=== PATIENT | male | born 1965 | race Caucasian/White ===

== ENCOUNTER 2019-03-12 10:58 | Inpatient (IN) | payer BC, OTHER ==
[2019-03-12] MEDS ORDERED: FAMOTIDINE 20 MG/50 ML IVPB 20 MG/50 ML MG IVPB ONE ×2 (11:33→13:14)
[2019-03-12] MEDS ORDERED: SODIUM CHLORIDE 1,000 ML IV STA (11:33)
[2019-03-12] MEDS ORDERED: ONDANSETRON 4 MG/2 ML VIAL IVPUSH ONE ×2 (11:34→18:15)
--- NOTE | 2019-03-12 11:42 | PDOC ---
History of Present Illness - General History Source: Patient, Spouse - History of Present Illness Initial Comments: 03/12/19 11:40 Patient is a 53-year-old male who presents to the ED with his for nausea and vomiting that has been ongoing for the last 1 week. Patient states that he is unable to eat any food and has only been able to drink Ensure or fluids. 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 He had an endoscopy this past week by his GI doctor, Dr. Mann who is in [facility]. The patient's spouse's [id number] advised him to come to [facility] for further evaluation and treatment. The patient also had a CT scan this past week. The patient quit smoking about 8 years ago and states he drinks little and only drinks about 5-6 beers every Tuesday night. The patient also admits to having chest pain rating down his left arm for the last 2 days.The pain does not radiate to his back. He denies any jaw or neck pain. <Rahel Quesada - Last Filed: 03/12/19 19:08> <Ray Castro - Last Filed: 03/13/19 09:34> - General Chief Complaint: Nausea/Vomiting Stated Complaint: COLD SYMPTOMS Time Seen by Provider: 03/12/19 11:25 Past History - Past Medical History COPD: No Other medical history: oesophageal canccer - Surgical History Cholecystectomy: No Lung Surgery: No - Immunization History Immunization Up to Date: No - Psycho Social/Smoking Cessation Hx Smoking History: Former smoker Have you smoked in the past 12 months: No Information on smoking cessation initiated: No Hx Alcohol Use: No Drug/Substance Use Hx: No <Rahel Quesada - Last Filed: 03/12/19 19:08> <Ray Castro - Last Filed: 03/13/19 09:34> - Past Medical History Allergies/Adverse Reactions: Allergies Allergy/AdvReac Type Severity Reaction Status Date / Time No Known Allergies Allergy Verified 03/12/19 11:15 Review of Systems - Review of Systems Comments:: 03/12/19 11:40 - Review of Systems Able to Perform ROS?: Yes Constitutional: No: Fever, Chills, Night Sweats; + malaise + Weakness, +Loss of Appetite HEENTM: No: Eye Pain, Vision changes, Ear Pain, Throat Pain, Throat Swelling, Mouth Pain, Difficulty Swallowing Respiratory: No: Cough, Shortness of Breath, Wheezing, Sputum Production Cardiac (ROS): No: Chest Pain, Chest Tightness, Palpitations, Irregular Heart Beat, Edema ABD/GI: No: Diarrhea; + Nausea, Vomiting, Abdominal Pain : No Dysuria, No Hematuria, No Frequency, No Urgency Musculoskeletal: No: Muscle Pain, Back Pain, Joint Pain, Muscle Weakness, Neck Pain Integumentary: No: Lesions, Rash Neurological: No: Headache, Numbness, Tingling, Weakness, Speech Difficulties 03/12/19 11:46 <Rahel Quesada D - Last Filed: 03/12/19 19:08> *Physical Exam - Vital Signs Last Vital Signs Temp Pulse Resp BP Pulse Ox 97.9 F 104 H 16 133/85 93 L 03/12/19 11:15 03/12/19 11:15 03/12/19 11:15 03/12/19 11:15 03/12/19 11:15 - Physical Exam 03/12/19 11:41 - Physical Exam General Appearance: Nourished, Appropriately Dressed, No Distress: + moderate distress secondary to general unwell feeling HEENT: EOMI, Normal Voice, No Pharyngeal Erythema, No Muffled/Hoarse voice, No Tonsillar Exudate, No Tonsillar Erythema, No Nasal Congestion, No Rhinorrhea, Hearing Grossly Normal, TMs Normal, No TM Bulging, No TM Dullness, No TM Erythema Neck: Supple, No Lymphadenopathy (R), No Lymphadenopathy (L), No Rigidity, No Decreased range of motion Respiratory/Chest: Lungs Clear, Normal Breath Sounds. No Respiratory Distress, No Accessory Muscle Use Cardiovascular: Regular Rhythm, Regular Rate, S1, S2 Gastrointestinal/Abdominal: Normal Bowel Sounds, Soft. + diffuse upper abdominal tenderness to palpation, + voluntary guarding appreciated Musculoskeletal: Normal Inspection. No Decreased Range of Motion Extremity: Normal Capillary Refill, Normal Inspection Integumentary: Normal Color, Dry. No Rash Neurologic: supervisor edging II-XII NML intact, Fully Oriented, Alert, Normal Mood/Affect, Normal Response <Rahel Quesada D - Last Filed: 03/12/19 19:08> - Vital Signs Last Vital Signs Temp Pulse Resp BP Pulse Ox 98.6 F 100 H 18 138/83 87 L 03/13/19 05:58 03/13/19 05:58 03/13/19 05:58 03/13/19 05:58 03/13/19 03:51 <Ray Castro - Last Filed: 03/13/19 09:34> ED Treatment Course - LABORATORY CBC & Chemistry Diagram: 03/12/19 13:30 03/12/19 13:30 - ADDITIONAL ORDERS Additional order review: 03/12/19 14:50 Laboratory Tests 03/12/19 03/12/19 03/12/19 13:30 13:30 13:30 WBC 9.2 RBC 5.67 H Hgb 17.6 H Hct 50.9 H MCV 89.8 MCH 31.0 MCHC 34.5 RDW 13.1 Plt Count 256 MPV 9.9 Absolute Neuts (auto) 8.0 Neutrophils % 86.3 H Lymphocytes % 6.5 L Monocytes % 6.4 Eosinophils % 0.5 Basophils % 0.3 Nucleated RBC % 0 PT with INR INR PTT (Actin FS) Sodium 133 L Potassium 5.3 H Chloride 99 Carbon Dioxide 26 Anion Gap 8 BUN 18.2 H Creatinine 1.2 Est GFR (CKD-EPI)AfAm 78.98 Est GFR (CKD-EPI)NonAf 68.14 Random Glucose 81 Calcium 9.0 Total Bilirubin 1.8 H AST 473 H ALT 374 H Alkaline Phosphatase 446 H Creatine Kinase 282 Creatine Kinase Index Pending CK-MB (CK-2) Pending Troponin I < 0.02 Total Protein 6.9 Albumin 3.0 L Lipase 152 03/12/19 13:30 WBC RBC Hgb Hct MCV MCH MCHC RDW Plt Count MPV Absolute Neuts (auto) Neutrophils % Lymphocytes % Monocytes % Eosinophils % Basophils % Nucleated RBC % PT with INR 15.10 H INR 1.28 H PTT (Actin FS) 31.4 Sodium Potassium Chloride Carbon Dioxide Anion Gap BUN Creatinine Est GFR (CKD-EPI)AfAm Est GFR (CKD-EPI)NonAf Random Glucose Calcium Total Bilirubin AST ALT Alkaline Phosphatase Creatine Kinase Creatine Kinase Index CK-MB (CK-2) Troponin I Total Protein Albumin Lipase <Rahel Quesada - Last Filed: 03/12/19 19:08> - LABORATORY CBC & Chemistry Diagram: 03/13/19 07:25 03/13/19 07:25 - ADDITIONAL ORDERS Additional order review: 03/12/19 13:30 RBC 5.67 H MCV 89.8 MCHC 34.5 RDW 13.1 MPV 9.9 Neutrophils % 86.3 H Lymphocytes % 6.5 L Monocytes % 6.4 Eosinophils % 0.5 Basophils % 0.3 - Medications Given in the ED: ED Medications Discontinued Medications Generic Name Dose Route Start Last Admin Trade Name Sundarq PRN Reason Stop Dose Admin Famotidine/Sodium Chloride 20 mg in 50 mls @ 100 mls/hr 03/12/19 11:33 13:37 Pepcid 20 Mg Premixed Ivpb - IVPB 03/12/19 12:02 100 mls/hr ONCE ONE Administration Sodium Chloride 1,000 mls @ 1,000 mls/hr 03/12/19 11:33 03/12/19 13:36 Normal Saline - IV 03/12/19 12:32 1,000 mls/hr ASDIR STA Administration Morphine Sulfate 4 mg 03/12/19 11:51 03/12/19 13:37 Morphine Injection - IVPUSH 03/12/19 11:52 4 mg ONCE ONE Administration Morphine Sulfate 4 mg 03/12/19 18:15 03/12/19 18:28 Morphine Injection - IVPUSH 03/12/19 18:16 4 mg ONCE ONE Administration Ondansetron HCl 4 mg 03/12/19 11:34 03/12/19 13:37 Zofran Injection IVPUSH 03/12/19 11:35 4 mg ONCE ONE Administration Ondansetron HCl 4 mg 03/12/19 18:15 03/12/19 18:28 Zofran Injection IVPUSH 03/12/19 18:16 4 mg ONCE ONE Administration Sodium Chloride 1,000 ml 03/12/19 14:53 03/12/19 15:31 Normal Saline - IV 03/12/19 14:54 1,000 ml ONCE ONE Administration Sodium Chloride 1,000 ml 03/12/19 18:15 03/12/19 18:28 Normal Saline - IV 03/12/19 18:16 1,000 ml ONCE ONE Administration <Ray Castro - Last Filed: 03/13/19 09:34> Medical Decision Making - Medical Decision Making 03/12/19 11:47 Pt is a 53 y/o male with a recent diagnosis of esophageal cancer with metastasis to his liver who presents to the ED with vomiting, abdominal pain and chest pain. The abdominal pain and vomiting has been ongoing for 1 week. The chest pain started 2 days ago. -We will send labs for further evaluation -EKG ordered -Zofran, pepcid and fluids. -Morphine -Will reassess 03/12/19 18:55 I have had multiple discussions with the patient and his . The patient just came back from CT scan. A repeat dose of Zofran and morphine have been given to the patient. The patient will require admission but he is pending his CT scan read. The patient has been endorsed to [facility] for further evaluation and treatment. <Rahel Quesada - Last Filed: 03/12/19 19:08> - Medical Decision Making 03/13/19 09:34 I reviewed the case of the mid-level practitioner and was available for consultation while in the emergency department <Ray Castro - Last Filed: 03/13/19 09:34> Discharge - Discharge Information Problems reviewed: Yes <Rahel Quesada - Last Filed: 03/12/19 19:08> <Ray Castro - Last Filed: 03/13/19 09:34> - Discharge Information Clinical Impression/Diagnosis: Transaminitis, Abdominal pain Vomiting Qualifiers: Vomiting type: unspecified Vomiting Intractability: non-intractable Nausea presence: with nausea Qualified Code(s): R11.2 - Nausea with vomiting, unspecified Condition: Stable
[2019-03-12] MEDS ORDERED: morphine CARPU-JECT 4 MG/1 ML DISP.SYRIN IVPUSH ONE ×2 (11:51→18:15)
[2019-03-12] MEDS ORDERED: ONDANSETRON 4 MG/2 ML VIAL ONE ×2 (13:13→18:20)
[2019-03-12] MEDS ORDERED: morphine SULFATE 4 MG/ML VIAL ONE ×2 (13:13→18:19)
[2019-03-12] MEDS ORDERED: MORPHINE SULFATE 2 MG/ML VIAL ONE (13:23)
[2019-03-12 14:07] LABS: BASO % 0.3 % (0-2.0); EOS % 0.5 % (0-4.5); HEMATOCRIT 50.9 % (35.4-49); HEMOGLOBIN 17.6 GM/dL (11.7-16.9); LYMPH % 6.5 % (8-40); MCHC 34.5 g/dl (32.0-35.9); MEAN CELL VOLUME 89.8 fl (80-96); MEAN PLT VOLUME 9.9 fl (7.5-11.1); MONO % 6.4 % (3.8-10.2); NEUT % 86.3 % (42.8-82.8); PLATELET COUNT 256 K/MM3 (134-434); RBC 5.67 M/mm3 (4.00-5.60); RDW 13.1 % (11.9-15.9); WHITE BLOOD COUNT 9.2 K/mm3 (4.0-10.0)
[2019-03-12 14:26] LABS: INR 1.28 (0.83-1.09); PROTHROMBIN TIME (PATIENT) 15.1 SEC (9.7-13.0)
[2019-03-12 14:29] LABS: ACTIVATED PTT 31.4 SECONDS (25.2-36.5)
[2019-03-12 14:45] LABS: BILIRUBIN,TOTAL 1.8 mg/dL (0.2-1); BLOOD UREA NITROGEN 18.2 mg/dL (7-18); CREATININE 1.2 mg/dL (0.55-1.3); POTASSIUM 5.3 mmol/L (3.5-5.1); TOT PROT 6.9 g/dl (6.4-8.2)
[2019-03-12] MEDS ORDERED: SODIUM CHLORIDE 0.9% 500 ML INFUS.BAG IV ONE ×2 (14:53→18:15)
--- NOTE | 2019-03-12 15:49 | EKG ---
Test Reason : Blood Pressure : / mmHG Vent. Rate : 093 BPM Atrial Rate : 093 BPM P-R Int : 142 ms QRS Dur : 106 ms QT Int : 370 ms P-R-T Axes : 000 014 020 degrees QTc Int : 460 ms NORMAL SINUS RHYTHM NORMAL ECG NO PREVIOUS ECGS AVAILABLE Confirmed by Iwona Sandoval ([id number]) on 03/12/2019 3:49:26 PM Referred By: Confirmed By:Iwona Sandoval
--- NOTE | 2019-03-12 20:18 | PDOC ---
*Physical Exam - Vital Signs Last Vital Signs Temp Pulse Resp BP Pulse Ox 98.0 F 80 16 140/84 98 03/12/19 15:33 03/12/19 15:33 03/12/19 15:33 03/12/19 15:33 03/12/19 15:33 ED Treatment Course - LABORATORY CBC & Chemistry Diagram: 03/12/19 13:30 03/12/19 13:30 - ADDITIONAL ORDERS Additional order review: Laboratory Results 03/12/19 03/12/19 03/12/19 13:30 13:30 13:30 PT with INR 15.10 H INR 1.28 H PTT (Actin FS) 31.4 Sodium 133 L Potassium 5.3 H Chloride 99 Carbon Dioxide 26 Anion Gap 8 BUN 18.2 H Creatinine 1.2 Est GFR (CKD-EPI)AfAm 78.98 Est GFR (CKD-EPI)NonAf 68.14 Random Glucose 81 Calcium 9.0 Total Bilirubin 1.8 H AST 473 H ALT 374 H Alkaline Phosphatase 446 H Creatine Kinase 282 Creatine Kinase Index No Result Required. CK-MB (CK-2) < 1.0 Troponin I < 0.02 Total Protein 6.9 Albumin 3.0 L Lipase 152 03/12/19 13:30 RBC 5.67 H MCV 89.8 MCHC 34.5 RDW 13.1 MPV 9.9 Neutrophils % 86.3 H Lymphocytes % 6.5 L Monocytes % 6.4 Eosinophils % 0.5 Basophils % 0.3 - RADIOLOGY Radiology Studies Ordered: Category Date Time Status ABDOMEN US [US] Stat Ultrasound 03/12/19 19:59 Ordered - Medications Given in the ED: ED Medications Discontinued Medications Generic Name Dose Route Start Last Admin Trade Name Freq PRN Reason Stop Dose Admin Famotidine/Sodium Chloride 20 mg in 50 mls @ 100 mls/hr 03/12/19 11:33 13:37 Pepcid 20 Mg Premixed Ivpb - IVPB 03/12/19 12:02 100 mls/hr ONCE ONE Administration Sodium Chloride 1,000 mls @ 1,000 mls/hr 03/12/19 11:33 03/12/19 13:36 Normal Saline - IV 03/12/19 12:32 1,000 mls/hr ASDIR STA Administration Morphine Sulfate 4 mg 03/12/19 11:51 03/12/19 13:37 Morphine Injection - IVPUSH 03/12/19 11:52 4 mg ONCE ONE Administration Morphine Sulfate 4 mg 03/12/19 18:15 03/12/19 18:28 Morphine Injection - IVPUSH 03/12/19 18:16 4 mg ONCE ONE Administration Ondansetron HCl 4 mg 03/12/19 11:34 03/12/19 13:37 Zofran Injection IVPUSH 03/12/19 11:35 4 mg ONCE ONE Administration Ondansetron HCl 4 mg 03/12/19 18:15 03/12/19 18:28 Zofran Injection IVPUSH 03/12/19 18:16 4 mg ONCE ONE Administration Sodium Chloride 1,000 ml 03/12/19 14:53 03/12/19 15:31 Normal Saline - IV 03/12/19 14:54 1,000 ml ONCE ONE Administration Sodium Chloride 1,000 ml 03/12/19 18:15 03/12/19 18:28 Normal Saline - IV 03/12/19 18:16 1,000 ml ONCE ONE Administration Medical Decision Making - Medical Decision Making 03/12/19 20:22 Patient CTAP shows gall bladder wall thickening. US pending patient to be admitted patient signed out to Dr. Hanna Discharge - Discharge Information Problems reviewed: Yes Clinical Impression/Diagnosis: Transaminitis Vomiting Qualifiers: Vomiting type: unspecified Vomiting Intractability: non-intractable Nausea presence: with nausea Qualified Code(s): R11.2 - Nausea with vomiting, unspecified Abdominal pain Qualifiers: Abdominal location: upper abdomen, unspecified Qualified Code(s): R10.10 - Upper abdominal pain, unspecified Condition: Stable - Admission Yes - Follow up/Referral - Patient Discharge Instructions - Post Discharge Activity
--- NOTE | 2019-03-12 20:46 | HP ---
Admitting History and Physical - Primary Care Physician PCP: Karl Hanna - Admission History of Present Illness: Patient is a 53-year-old male who presents to the ED with his for nausea and vomiting that has been ongoing for the last 1 week. Patient states that he is unable to eat any food and has only been able to drink Ensure or fluids. 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 He had an endoscopy this past week by his GI doctor, Dr. Mann who is in [facility]. The patient's spouse's [id number] advised him to come to [facility] for further evaluation and treatment. The patient also had a CT scan this past week. The patient quit smoking about 8 years ago and states he drinks little and only drinks about 5-6 beers every Tuesday night. The patient also admits to having chest pain rating down his left arm for the last 2 days.The pain does not radiate to his back. He denies any jaw or neck pain. - Smoking History Smoking history: Former smoker Have you smoked in the past 12 months: No - Alcohol/Substance Use Hx Alcohol Use: No Home Medications - Allergies Allergies/Adverse Reactions: Allergies Allergy/AdvReac Type Severity Reaction Status Date / Time No Known Allergies Allergy Verified 03/12/19 11:15 Review of Systems - Review of Systems Gastrointestinal: reports: Dysphagia Physical Examination Vital Signs: Vital Signs Temperature 98.0 F 03/12/19 15:33 Pulse Rate 80 03/12/19 15:33 Respiratory Rate 16 03/12/19 15:33 Blood Pressure 140/84 03/12/19 15:33 O2 Sat by Pulse Oximetry (%) 98 03/12/19 15:33 Constitutional: Yes: No Distress HENT: Yes: Atraumatic Neck: Yes: Supple Cardiovascular: Yes: Regular Rate and Rhythm Respiratory: Yes: CTA Bilaterally Gastrointestinal: Yes: Normal Bowel Sounds Extremities: Yes: WNL Edema: No Neurological: Yes: Alert, Oriented Labs: CBC, BMP 03/12/19 13:30 03/12/19 13:30 Problem List - Problems (1) Abdominal pain Assessment/Plan: prn pain meds Code(s): R10.9 - UNSPECIFIED ABDOMINAL PAIN Qualifiers: Abdominal location: upper abdomen, unspecified Qualified Code(s): R10.10 - Upper abdominal pain, unspecified (2) Transaminitis Assessment/Plan: follow up labs Code(s): R74.0 - NONSPEC ELEV OF LEVELS OF TRANSAMNS & LACTIC ACID DEHYDRGNSE (3) Vomiting Assessment/Plan: prn zofran Code(s): R11.10 - VOMITING, UNSPECIFIED Qualifiers: Vomiting type: unspecified Vomiting Intractability: non-intractable Nausea presence: with nausea Qualified Code(s): R11.2 - Nausea with vomiting, unspecified (4) Esophageal cancer Assessment/Plan: oncology consult to evaluate Code(s): C15.9 - MALIGNANT NEOPLASM OF ESOPHAGUS, UNSPECIFIED Assessment/Plan Laboratory Tests 03/12/19 03/12/19 03/12/19 13:30 13:30 13:30 WBC 9.2 RBC 5.67 H Hgb 17.6 H Hct 50.9 H MCV 89.8 MCH 31.0 MCHC 34.5 RDW 13.1 Plt Count 256 MPV 9.9 Absolute Neuts (auto) 8.0 Neutrophils % 86.3 H Lymphocytes % 6.5 L Monocytes % 6.4 Eosinophils % 0.5 Basophils % 0.3 Nucleated RBC % 0 PT with INR INR PTT (Actin FS) Sodium 133 L Potassium 5.3 H Chloride 99 Carbon Dioxide 26 Anion Gap 8 BUN 18.2 H Creatinine 1.2 Est GFR (CKD-EPI)AfAm 78.98 Est GFR (CKD-EPI)NonAf 68.14 Random Glucose 81 Calcium 9.0 Total Bilirubin 1.8 H AST 473 H ALT 374 H Alkaline Phosphatase 446 H Creatine Kinase 282 Creatine Kinase Index No Result Required. CK-MB (CK-2) < 1.0 Troponin I < 0.02 Total Protein 6.9 Albumin 3.0 L Lipase 152 03/12/19 13:30 WBC RBC Hgb Hct MCV MCH MCHC RDW Plt Count MPV Absolute Neuts (auto) Neutrophils % Lymphocytes % Monocytes % Eosinophils % Basophils % Nucleated RBC % PT with INR 15.10 H INR 1.28 H PTT (Actin FS) 31.4 Sodium Potassium Chloride Carbon Dioxide Anion Gap BUN Creatinine Est GFR (CKD-EPI)AfAm Est GFR (CKD-EPI)NonAf Random Glucose Calcium Total Bilirubin AST ALT Alkaline Phosphatase Creatine Kinase Creatine Kinase Index CK-MB (CK-2) Troponin I Total Protein Albumin Lipase Active Medications Generic Name Dose Route Start Last Admin Trade Name Freq PRN Reason Stop Dose Admin Heparin Sodium (Porcine) 5,000 unit 03/12/19 22:00 Heparin - SQ BID [facility] Sodium Chloride 1,000 mls @ 75 mls/hr 03/12/19 21:00 Normal Saline - IV ASDIR NATHALY Morphine Sulfate 2 mg 03/12/19 20:50 Morphine Sulfate IVPUSH Q4H PRN PAIN LEVEL 4 - 6 Ondansetron HCl 4 mg 03/12/19 20:50 Zofran Injection IVPB Q4H PRN NAUSEA AND/OR VOMITING Pantoprazole Sodium 40 mg 03/12/19 21:00 Protonix Iv IVPUSH DAILY NATHALY
[2019-03-12] MEDS: SODIUM CHLORIDE 1,000 ML IV SCH (22:14)
[2019-03-12] MEDS ORDERED: PANTOPRAZOLE SODIUM 40 MG VIAL ONE (22:15)
[2019-03-12] MEDS ORDERED: HEPARIN NA (PORCINE) 5,000 UNITS/ML 1ML VIAL ONE (22:15)
[2019-03-12] MEDS: PANTOPRAZOLE SODIUM 40 MG VIAL IVPUSH SCH (22:38)
[2019-03-12] MEDS: HEPARIN NA (PORCINE) 5,000 UNITS/ML 1ML VIAL SQ SCH (22:38)
[2019-03-13] MEDS ORDERED: ONDANSETRON 4 MG/2 ML VIAL ONE (01:30)
[2019-03-13] MEDS: ONDANSETRON 4 MG/2 ML VIAL IVPB PRN ×5 (02:34→21:43)
[2019-03-13 03:32] LABS: URINE APPEARANCE CLEAR; URINE BILIRUBIN NEGATIVE (NEGATIVE); URINE COLOR DK YELLOW; URINE GLUCOSE (UA) NEGATIVE (NEGATIVE); URINE KETONE NEGATIVE (NEGATIVE); URINE LEUK ESTERASE NEGATIVE (NEGATIVE); URINE NITRITE NEGATIVE (NEGATIVE); URINE PROTEIN NEGATIVE (NEGATIVE)
[2019-03-13 04:20] VITALS: BMI 32.1
[2019-03-13] MEDS: MORPHINE SULFATE 2 MG/ML VIAL IVPUSH PRN ×4 (07:06→21:42)
[2019-03-13] MEDS ORDERED: PNEUMOC 13-VAL CONJ-DIP CRM/PF 0.5 ML DISP.SYRIN IM ONE (08:00)
[2019-03-13 08:05] LABS: BASO % 0.6 % (0-2.0); EOS % 0.9 % (0-4.5); HEMATOCRIT 39.8 % (35.4-49); HEMOGLOBIN 13.6 GM/dL (11.7-16.9); LYMPH % 6.4 % (8-40); MCH 30.9 pg (25.7-33.7); MCHC 34.2 g/dl (32.0-35.9); MEAN CELL VOLUME 90.4 fl (80-96); MEAN PLT VOLUME 9.6 fl (7.5-11.1); MONO % 7.2 % (3.8-10.2); NEUT % 84.9 % (42.8-82.8); PLATELET COUNT 211 K/MM3 (134-434); RDW 13.1 % (11.9-15.9); WHITE BLOOD COUNT 8.5 K/mm3 (4.0-10.0)
[2019-03-13 08:28] LABS: ALBUMIN 2.5 g/dl (3.4-5.0); BILIRUBIN,TOTAL 1.3 mg/dL (0.2-1); BLOOD UREA NITROGEN 20.2 mg/dL (7-18); CREATININE 1.1 mg/dL (0.55-1.3); POTASSIUM 4.4 mmol/L (3.5-5.1); TOT PROT 5.3 g/dl (6.4-8.2)
[2019-03-13] MEDS ORDERED: FLU VACCINE QUAD 60 MCG/0.5 ML (MDV 19-20) IM ONE (10:00)
[2019-03-13] MEDS ORDERED: PNEUMOCOCCAL 23 VACCINE 0.5 ML VIAL IM ONE (10:00)
[2019-03-13] MEDS: PANTOPRAZOLE SODIUM 40 MG VIAL IVPUSH SCH (10:59)
[2019-03-13] MEDS: HEPARIN NA (PORCINE) 5,000 UNITS/ML 1ML VIAL SQ SCH ×2 (10:59→21:42)
--- NOTE | 2019-03-13 13:36 | PN ---
Progress Note (short form) - Note Progress Note: GI CONSULT DICTATED
--- NOTE | 2019-03-13 14:02 | CONS ---
GASTROINTESTINAL CONSULTATION DATE OF CONSULTATION: DATE OF DICTATION: 03/13/2019 HISTORY: Patient is a 53-year-old man with no significant past medical history except for a recent diagnosis of esophageal cancer. As per the patient's history, since , he has been experiencing dysphagia, difficulty swallowing solids and liquids, the sensation of food getting stuck in his chest. He was seen by his PMD who referred him to see a GI doctor, , in [facility] for an endoscopy. At that time, he was found to have esophageal cancer with metastasis to the liver. He presents to the emergency room with worsening symptoms of nausea, vomiting, and dysphagia. He apparently quit smoking 8 years ago and currently still drinks 5-6 beers on Fridays. He denies any melena, hematochezia. He does admit to some upper abdominal pain. He had a colonoscopy about 7 years ago and, again, his last endoscopy was a couple of weeks ago at which time he was diagnosed with new esophageal cancer. PAST MEDICAL HISTORY: As listed in the HPI. PAST SURGICAL HISTORY: As listed in the HPI. ALLERGIES: No known drug allergies. HOME MEDICATIONS: None. SOCIAL HISTORY: As per the HPI. No drug abuse. FAMILY HISTORY: No history of GI or gynecological malignancy. PHYSICAL EXAMINATION: Vital Signs: Temperature 98, pulse 100, blood pressure 138/83, respiratory rate 18, oxygen saturation 87% on room air. General: In no acute distress. HEENT: Anicteric sclerae. Cardiovascular: S1, S2. Regular rate and rhythm. Lungs: Bilaterally clear to auscultation. Abdomen: Soft, nontender. Extremities: No edema. LABORATORIES: White blood cell count 8.5, hemoglobin 13, hematocrit 39, MCV 90, platelet count 211, INR 1.2. Sodium 139, potassium 4.4, BUN 20, creatinine 1.1, total bilirubin 1.3, AST 366, ALT 260, alkaline phosphatase 309. Troponin is negative. Lipase 152. Urine within normal limits. No cultures were done. He did have a CT scan of the abdomen and pelvis, which revealed nonspecific, concentric wall thickening along the partially imaged lower 1/3 of the thoracic esophagus. Multiple hepatic masses. Upper abdominal and retroperitoneal lymphadenopathy is seen. A small amount of ascites is also seen. Also with [id number]-cile diffuse gallbladder wall thickening and elpxhtl-mi-fhis pericholecystic soft tissue stranding secondary to hepatic neoplastic disease versus possible acute cholecystitis. HIDA scan if indicated. No biliary calculi were visualized. Pancreas within normal limits. IMPRESSION: Stage 4 esophageal cancer with metastasis to the liver. Also with some gallbladder wall thickening and stranding, which may be secondary to his metastatic process in the liver. RECOMMENDATION: Liquid diet as tolerated. Would continue him on antiemetic therapy and PPI therapy for symptom control. Oncology evaluation for further management of a stage 4 esophageal cancer. Would also obtain surgery evaluation. Abdominal ultrasound will be ordered by me. I doubt he has acute cholecystitis, and these findings on imaging are most likely secondary to the underlying malignant process. We will follow. DO STAN CAMPA/[id number]
[2019-03-13] MEDS: SODIUM CHLORIDE 1,000 ML IV SCH (15:00)
--- NOTE | 2019-03-13 17:56 | PN ---
Progress Note, Physician - Current Medication List Current Medications: Active Medications Heparin Sodium (Porcine) (Heparin -) 5,000 unit SQ BID [facility] Last Admin: 03/13/19 10:59 Dose: 5,000 unit Sodium Chloride (Normal Saline -) 1,000 mls @ 75 mls/hr IV ASDIR [facility] Last Admin: 03/12/19 22:14 Dose: 75 mls/hr Morphine Sulfate (Morphine Sulfate) 2 mg IVPUSH Q4H PRN PRN Reason: PAIN LEVEL 4 - 6 Last Admin: 03/13/19 16:43 Dose: 2 mg Ondansetron HCl (Zofran Injection) 4 mg IVPB Q4H PRN PRN Reason: NAUSEA AND/OR VOMITING Last Admin: 03/13/19 16:43 Dose: 4 mg Pantoprazole Sodium (Protonix Iv) 40 mg IVPUSH DAILY [facility] Last Admin: 03/13/19 10:59 Dose: 40 mg - Objective Vital Signs: Vital Signs Temperature 98.6 F 03/13/19 15:00 Pulse Rate 91 H 03/13/19 15:00 Respiratory Rate 18 03/13/19 15:00 Blood Pressure 126/64 03/13/19 15:00 O2 Sat by Pulse Oximetry (%) 87 L 03/13/19 03:51 Constitutional: Yes: No Distress HENT: Yes: Atraumatic Neck: Yes: Supple Cardiovascular: Yes: Regular Rate and Rhythm Respiratory: Yes: CTA Bilaterally Gastrointestinal: Yes: Normal Bowel Sounds Extremities: Yes: WNL Edema: No Neurological: Yes: Alert, Oriented Labs: CBC, BMP 03/13/19 07:25 03/13/19 07:25 INR, PTT INR 1.28 (0.83-1.09) H 03/12/19 13:30 Problem List - Problems (1) Abdominal pain Assessment/Plan: prn pain meds resolving Code(s): R10.9 - UNSPECIFIED ABDOMINAL PAIN Qualifiers: Abdominal location: upper abdomen, unspecified Qualified Code(s): R10.10 - Upper abdominal pain, unspecified (2) Transaminitis Assessment/Plan: follow up labs Code(s): R74.0 - NONSPEC ELEV OF LEVELS OF TRANSAMNS & LACTIC ACID DEHYDRGNSE (3) Vomiting Assessment/Plan: prn zofran resolved Code(s): R11.10 - VOMITING, UNSPECIFIED Qualifiers: Vomiting type: unspecified Vomiting Intractability: non-intractable Nausea presence: with nausea Qualified Code(s): R11.2 - Nausea with vomiting, unspecified (4) Esophageal cancer Assessment/Plan: oncology consult to evaluate clear liquid diet Code(s): C15.9 - MALIGNANT NEOPLASM OF ESOPHAGUS, UNSPECIFIED
[2019-03-14] MEDS: SODIUM CHLORIDE 1,000 ML IV SCH (02:54)
[2019-03-14] MEDS: MORPHINE SULFATE 2 MG/ML VIAL IVPUSH PRN ×4 (02:55→19:56)
[2019-03-14] MEDS: ONDANSETRON 4 MG/2 ML VIAL IVPB PRN ×3 (02:55→19:52)
[2019-03-14] MEDS: PANTOPRAZOLE SODIUM 40 MG VIAL IVPUSH SCH (09:11)
[2019-03-14] MEDS: HEPARIN NA (PORCINE) 5,000 UNITS/ML 1ML VIAL SQ SCH ×2 (09:11→21:40)
--- NOTE | 2019-03-14 11:22 | CONSULT ---
Consultation: CONSULT SERVICE: Hematology/Oncology Resident HISTORY OF PRESENT ILLNESS: 53yo M with no significant history who presented originally to this facility with progressive dysphagia and intolerance to solid foods. Pt received endoscopy about 2-[address] Mann ([facility]) who diagnosed patient with esophageal cancer. At that time he received CT Chest, Abdomen, Pelvis for staging and was noted to have a liver lesion. Since then pt has had progressive generalized weakness and fatigue with ongoing dysphagia and inability to swallow solid food. Pt is able to swallow liquids at this point and also endorses some mild abdominal cramping. Spoke with patient with at bedside who informed me about connection with [facility] and hope of possibility of transfer to this facility. Currently pt is comfortable at time of exam and he denies any fever/chills, weight loss, SOB, cough, CP/discomfort, palpitations, abdominal bloating, numbness/tingling, focal weakness, hematemesis, hemoptysis. PMHx: Stage IV Esophageal Ca recently dx'd PSHx: Endoscopy 2-3 weeks prior; last colonoscopy 7 years prior without any notable findings SoHx: Tobacco - Former; quit 8 years prior with 1/2 - 1 PPD Alcohol - 5-6 beers every Tuesday Drugs - Denies Independent in ADLs Occupation: Worked with [employer] Family History: No esophageal Ca, no colon Ca REVIEW OF SYSTEMS: As per HPI PHYSICAL EXAMINATION Vital Signs - 24 hr 03/13/19 03/13/19 03/14/19 15:00 22:19 05:35 Temperature 98.6 F 99.3 F 98.1 F Pulse Rate 91 H 99 H 99 H Respiratory 18 20 19 Rate Blood Pressure 126/64 123/62 141/82 03/14/19 10:00 Temperature 98.4 F Pulse Rate 84 Respiratory 20 Rate Blood Pressure 130/79 GENERAL: NAD, Awake, alert, and fully oriented, laying in bed with at bedside HEENT: NC/AT, LOU, EOMI, sclera anicteric, MMM, no thrush or mucositis noted NECK: No masses appreciated, no cervical chain lymphadenopathy, no JVD LUNGS: CTA bilaterally. No wheezes, and no crackles. No accessory muscle use. On 2LNC 96% pulse oximetry HEART: Regular rate and rhythm, normal S1 and S2 without murmur, rub or gallop. ABDOMEN: Soft, nondistended, normoactive BS, slight tenderness with deep palptation notably in epigastric region, no guarding or rebound, no overt masses appreciated, liver edge one finger-width below rib angle via percussion, no splenomegaly appreciated. EXTREMITIES: 2+ distal pulses b/l, warm, No calf tenderness. No peripheral edema. Cap refill <2sec PSYCHIATRIC: Cooperative. Good eye contact. Appropriate mood and affect. SKIN: Warm, dry, no jaundice, no rashes or lesions noted. LN: No axillary or femoral lymphadenopathy CBC, BMP 03/13/19 07:25 03/13/19 07:25 Hepatic Panel Total Bilirubin 1.3 mg/dL (0.2-1) H 03/13/19 07:25 AST 366 U/L (15-37) H 03/13/19 07:25 ALT 260 U/L (13-61) H 03/13/19 07:25 Alkaline Phosphatase 309 U/L (45-117) H 03/13/19 07:25 Albumin 2.5 g/dl (3.4-5.0) L 03/13/19 07:25 Active Medications Generic Name Dose Route Start Last Admin Trade Name Freq PRN Reason Stop Dose Admin Heparin Sodium (Porcine) 5,000 unit 03/12/19 22:00 03/14/19 09:11 Heparin - SQ 5,000 unit BID NATHALY Administration Sodium Chloride 1,000 mls @ 75 mls/hr 03/12/19 21:00 03/14/19 02:54 Normal Saline - IV 75 mls/hr ASDIR NATHALY Administration Morphine Sulfate 2 mg 03/12/19 20:50 03/14/19 09:11 Morphine Sulfate IVPUSH 2 mg Q4H PRN Administration PAIN LEVEL 4 - 6 Ondansetron HCl 4 mg 03/12/19 20:50 03/14/19 02:55 Zofran Injection IVPB 4 mg Q4H PRN Administration NAUSEA AND/OR VOMITING Pantoprazole Sodium 40 mg 03/12/19 21:00 03/14/19 09:11 Protonix Iv IVPUSH 40 mg DAILY NATHALY Administration ASSESSMENT/PLAN: Suspected Stage IV Esophageal Cancer Liver Mass likely neoplastic disease Transaminitis --Discussed with patient and patient's regarding goals of care and would like to pursue any option with life extending benefits --Given Stage IV no benefit from surgery --Will need slide review from previous pathology if available; discussed with --Will need liver biopsy for staging and pathology --Encouraged use of ensure, pediatlyte liquids while patient is having dysphagia to maintain hydration status --Appreciate GI consultation regarding malnutrition potential: esophageal stent vs. PEG vs. other modalities --Renal consultation for temporizing TPN --Will need chemoport placement for systemic therapy; dual lumen would be beneficial due to TPN and therapy Case discussed with Dr. Rodriguez and family at bedside Brian Osborn, - IM PGY-3 Visit type - Emergency Visit Emergency Visit: Yes ED Registration Date: 03/12/19 Care time: The patient presented to the Emergency Department on the above date and was hospitalized for further evaluation of their emergent condition. - New Patient This patient is new to me today: Yes Date on this admission: 03/14/19 - Critical Care Critical Care patient: No ATTENDING PHYSICIAN STATEMENT I saw and evaluated the patient. I reviewed the resident's note and discussed the case with the resident. I agree with the resident's findings and plan as documented. SUBJECTIVE: OBJECTIVE: ASSESSMENT AND PLAN:
--- NOTE | 2019-03-14 13:28 | PN ---
Progress Note, Physician History of Present Illness: dificulty swallowing - Current Medication List Current Medications: Active Medications Heparin Sodium (Porcine) (Heparin -) 5,000 unit SQ BID [facility] Last Admin: 03/14/19 09:11 Dose: 5,000 unit Sodium Chloride (Normal Saline -) 1,000 mls @ 75 mls/hr IV ASDIR [facility] Last Admin: 03/14/19 02:54 Dose: 75 mls/hr Morphine Sulfate (Morphine Sulfate) 2 mg IVPUSH Q4H PRN PRN Reason: PAIN LEVEL 4 - 6 Last Admin: 03/14/19 09:11 Dose: 2 mg Ondansetron HCl (Zofran Injection) 4 mg IVPB Q4H PRN PRN Reason: NAUSEA AND/OR VOMITING Last Admin: 03/14/19 02:55 Dose: 4 mg Pantoprazole Sodium (Protonix Iv) 40 mg IVPUSH DAILY [facility] Last Admin: 03/14/19 09:11 Dose: 40 mg - Objective Vital Signs: Vital Signs Temperature 98.4 F 03/14/19 10:00 Pulse Rate 84 03/14/19 10:00 Respiratory Rate 03/14/19 10:00 Blood Pressure 130/79 03/14/19 10:00 O2 Sat by Pulse Oximetry (%) 87 L 03/13/19 03:51 Constitutional: Yes: Calm HENT: Yes: Atraumatic Neck: Yes: Supple Cardiovascular: Yes: Regular Rate and Rhythm Respiratory: Yes: CTA Bilaterally Gastrointestinal: Yes: Normal Bowel Sounds Extremities: Yes: WNL Edema: No Peripheral Pulses WNL: Yes Neurological: Yes: Alert, Oriented Labs: CBC, BMP 03/13/19 07:25 03/13/19 07:25 INR, PTT INR 1.28 (0.83-1.09) H 03/12/19 13:30 Problem List - Problems (1) Abdominal pain Assessment/Plan: prn pain meds Code(s): R10.9 - UNSPECIFIED ABDOMINAL PAIN Qualifiers: Abdominal location: upper abdomen, unspecified Qualified Code(s): R10.10 - Upper abdominal pain, unspecified (2) Transaminitis Assessment/Plan: follow up labs Code(s): R74.0 - NONSPEC ELEV OF LEVELS OF TRANSAMNS & LACTIC ACID DEHYDRGNSE (3) Vomiting Assessment/Plan: prn zofran resolved Code(s): R11.10 - VOMITING, UNSPECIFIED Qualifiers: Vomiting type: unspecified Vomiting Intractability: non-intractable Nausea presence: with nausea Qualified Code(s): R11.2 - Nausea with vomiting, unspecified (4) Esophageal cancer Assessment/Plan: oncology consult to evaluate Code(s): C15.9 - MALIGNANT NEOPLASM OF ESOPHAGUS, UNSPECIFIED
--- NOTE | 2019-03-14 15:48 | PN.GI ---
GI Progress Note Subjective: Pt seen/examined at bedside, feeling better overall, no further nausea/vomiting , tolerating full liquid diet. Denies abdominal pain. - Objective Vital Signs: Vital Signs Temperature 98.1 F 03/14/19 14:00 Pulse Rate 86 03/14/19 14:00 Respiratory Rate 03/14/19 14:00 Blood Pressure 132/77 03/14/19 14:00 O2 Sat by Pulse Oximetry (%) 87 L 03/13/19 03:51 Constitutional: No Distress, Calm Cardiovascular: Yes: WNL, Regular Rate and Rhythm Respiratory: Yes: WNL, Regular, CTA Bilaterally ...Palpate: Yes: Other (Abd soft, nt, nd) Labs: CBC, BMP 03/13/19 07:25 03/13/19 07:25 INR, PTT INR 1.28 (0.83-1.09) H 03/12/19 13:30 Problem List - Problems (1) Esophageal cancer Assessment/Plan: 52yo male with recently diagnosed esophageal cancer presenting with nausea and vomiting. Symptoms now improved. CT imaging revealing esophageal mass with likely liver metastases. EGD performed at outside facility 1-2 weeks ago (report /path not available). -Obtain EGD report if possible and pathology results -Diet as tolerated for now -Further recommendations per oncology - pt considering possible coordination/ transferring care to [facility] Code(s): C15.9 - MALIGNANT NEOPLASM OF ESOPHAGUS, UNSPECIFIED (2) Elevated LFTs Assessment/Plan: US reviewed. Most likely secondary to hepatic metastases. Oncology following. Code(s): R94.5 - ABNORMAL RESULTS OF LIVER FUNCTION STUDIES
--- NOTE | 2019-03-14 16:33 | PN ---
Teaching Attending Note Name of Resident: Brian Osborn ATTENDING PHYSICIAN STATEMENT I saw and evaluated the patient. I reviewed the resident's note and discussed the case with the resident. I agree with the resident's findings and plan as documented. SUBJECTIVE: Patient seen and examined Previously helathy male who began experiencing dysphagia and some odynophagia since . Has lost 30 Lbs. over this time period. Recent EGD in [place]- lower 02/[address]/sono suggests hepatic mets. PMH - non contributory but for smoking 1-02/15 ppd since age 14 thru age 45. No history of [place] . Drinks 5-6 beers on week-ends. No illicit Drugs Exposure to [employer] in [employer] and [employer] [id number] ZERO - 4-5 days initially SH - with 3 children Surgical Hx - left hand - hand surgery after accident with saw FH - negative for malignancy Father of consequences of DMII ROS- dysphagia, odynophagia, weight loss of > 30 lbs. since ; RUQ discomfort PE Last Vital Signs Temp Pulse Resp BP Pulse Ox 98.1 F 86 20 132/77 87 L 03/14/19 14:00 03/14/19 14:00 03/14/19 14:03/14/19 14:03/13/19 03:51 HEENT: CHAVA, EOM Intact Oropharynx: thrush, No mucositis Neck: Supple Nodes: Without adenopathy Breasts: Without masses Cor: RSR, No murmurs, No gallops Lungs: Clear to P&A Abd: Soft, Normal bowel sounds, liver ballotted 10 cm below RCM and somewhat tender Uncircumcised male/testes descended Ext:No significant edema Skin: No rashes, Integument intact CBC, BMP 03/13/19 07:25 03/13/19 07:25 Current Medications Generic Name Dose Route Start Last Admin Trade Name Freq PRN Reason Stop Dose Admin Heparin Sodium (Porcine) 5,000 unit 03/12/19 22:00 03/14/19 09:11 Heparin - SQ 5,000 unit BID NATHALY Administration Sodium Chloride 1,000 mls @ 75 mls/hr 03/12/19 21:00 03/14/19 02:54 Normal Saline - IV 75 mls/hr ASDIR NATHALY Administration Morphine Sulfate 2 mg 03/12/19 20:50 03/14/19 14:28 Morphine Sulfate IVPUSH 2 mg Q4H PRN Administration PAIN LEVEL 4 - 6 Ondansetron HCl 4 mg 03/12/19 20:50 03/14/19 14:33 Zofran Injection IVPB 4 mg Q4H PRN Administration NAUSEA AND/OR VOMITING Pantoprazole Sodium 40 mg 03/12/19 21:00 03/14/19 09:11 Protonix Iv IVPUSH 40 mg DAILY NATHALY Administration OBJECTIVE: CT/U.S reviewed Impression: By history esophageal ca Likely liver mets Malnutrition Seems to want to be treated locally Suggest : Renal consult for TPN I.R. Consult for liver biopsy I.R consult for double lumen port Slides from esophageal biopsy-- spoke with EGD by GI Consideration for systemic therapy thereafter ASSESSMENT AND PLAN:
[2019-03-14] MEDS: AMINO ACIDS 4.25%/D5W 1,000 ML IV SCH (19:52)
[2019-03-15] MEDS: ONDANSETRON 4 MG/2 ML VIAL IVPB PRN ×5 (01:29→20:14)
[2019-03-15] MEDS: AMINO ACIDS 4.25%/D5W 1,000 ML IV SCH ×2 (08:21→20:13)
[2019-03-15] MEDS: PANTOPRAZOLE SODIUM 40 MG VIAL IVPUSH SCH (09:02)
[2019-03-15] MEDS: HEPARIN NA (PORCINE) 5,000 UNITS/ML 1ML VIAL SQ SCH ×2 (09:05→22:06)
--- NOTE | 2019-03-15 17:05 | PN ---
Progress Note, Physician History of Present Illness: dificulty swallowing - Current Medication List Current Medications: Active Medications Heparin Sodium (Porcine) (Heparin -) 5,000 unit SQ BID [facility] Last Admin: 03/15/19 09:05 Dose: Not Given Amino Acids (Clinimix -) 1,000 mls @ 84 mls/hr IV Q12H [facility] Last Admin: 03/15/19 08:21 Dose: 84 mls/hr Morphine Sulfate (Morphine Sulfate) 2 mg IVPUSH Q4H PRN PRN Reason: PAIN LEVEL 4 - 6 Last Admin: 03/14/19 19:56 Dose: 2 mg Ondansetron HCl (Zofran Injection) 4 mg IVPB Q4H PRN PRN Reason: NAUSEA AND/OR VOMITING Last Admin: 03/15/19 16:08 Dose: 4 mg Pantoprazole Sodium (Protonix Iv) 40 mg IVPUSH DAILY [facility] Last Admin: 03/15/19 09:02 Dose: 40 mg - Objective Vital Signs: Vital Signs Temperature 98.1 F 03/15/19 14:52 Pulse Rate 103 H 03/15/19 14:52 Respiratory Rate 03/15/19 14:52 Blood Pressure 146/86 03/15/19 14:52 O2 Sat by Pulse Oximetry (%) 87 L 03/13/19 03:51 Constitutional: Yes: No Distress HENT: Yes: Atraumatic Neck: Yes: Supple Cardiovascular: Yes: Regular Rate and Rhythm Respiratory: Yes: CTA Bilaterally Gastrointestinal: Yes: Normal Bowel Sounds Extremities: Yes: WNL Neurological: Yes: Alert, Oriented Labs: CBC, BMP 03/13/19 07:25 03/13/19 07:25 INR, PTT INR 1.28 (0.83-1.09) H 03/12/19 13:30 Problem List - Problems (1) Abdominal pain Assessment/Plan: resolved Code(s): R10.9 - UNSPECIFIED ABDOMINAL PAIN Qualifiers: Abdominal location: upper abdomen, unspecified Qualified Code(s): R10.10 - Upper abdominal pain, unspecified (2) Transaminitis Assessment/Plan: follow up labs Code(s): R74.0 - NONSPEC ELEV OF LEVELS OF TRANSAMNS & LACTIC ACID DEHYDRGNSE (3) Vomiting Assessment/Plan: on clear liquid Code(s): R11.10 - VOMITING, UNSPECIFIED Qualifiers: Vomiting type: unspecified Vomiting Intractability: non-intractable Nausea presence: with nausea Qualified Code(s): R11.2 - Nausea with vomiting, unspecified (4) Esophageal cancer Assessment/Plan: oncology consult to evaluate clear liquid diet Code(s): C15.9 - MALIGNANT NEOPLASM OF ESOPHAGUS, UNSPECIFIED
--- NOTE | 2019-03-15 18:17 | PN ---
Progress Note (short form) - Note Progress Note: Had d/w Mr. Wagoner and his this evening. In setting of S IV esophageal cancer with significant Upper GI symptoms, discussed transfer for evaluation for palliative esophageal stent placement. I spoke with Dr. Gagan Alberts at [facility] who also felt that this was a reasonable option. Ms. Wagoner was exploring options for evaluation at [facility] but was not opposed to transfer to [facility]. She wanted to discuss things with his Medical doctor and Dr. Rodriguez. Awaiting pathology results from recent EGD prior to making decision. For now, clear liquids if tolerates
--- NOTE | 2019-03-15 19:22 | CONSULT ---
Consult Consult Specialty:: Nephrology Reason for Consultation:: hyperkalemia - History of Present Illness Chief Complaint: nausea and vomiting History of Present Illness: Pt is a 53 year old male with pmhx of esophageal cancer that was recently daignosed who presents to the ER with nausea and vomiting. He was found to be dehydrated and hyperkalemic. He says that he has had vomiting on and off for the last few weeks. He is able to keep down jello and gatorade. He denies fevers or chills. He denies chest pain. He denies diarrhea. - History Source History Provided By: Patient, Medical Record - Past Medical History Heme/Onc: Yes: Other (esophageal cancer) - Alcohol/Substance Use Hx Alcohol Use: No - Smoking History Smoking history: Former smoker Have you smoked in the past 12 months: No If you are a former smoker, when did you quit?: 2010 Home Medications - Allergies Allergies/Adverse Reactions: Allergies Allergy/AdvReac Type Severity Reaction Status Date / Time No Known Allergies Allergy Verified 03/12/19 11:15 Family Medical History Family History: Denies Review of Systems - Review of Systems Constitutional: reports: Malaise Eyes: reports: No Symptoms HENT: reports: No Symptoms Neck: reports: No Symptoms Cardiovascular: reports: No Symptoms Gastrointestinal: reports: Nausea, Vomiting Genitourinary: reports: No Symptoms Musculoskeletal: reports: No Symptoms Integumentary: reports: No Symptoms Neurological: reports: No Symptoms Endocrine: reports: No Symptoms Hematology/Lymphatic: reports: No Symptoms Psychiatric: reports: No Symptoms Physical Exam Vital Signs: Vital Signs Temperature 98.1 F 03/15/19 14:52 Pulse Rate 103 H 03/15/19 14:52 Respiratory Rate 03/15/19 14:52 Blood Pressure 146/86 03/15/19 14:52 O2 Sat by Pulse Oximetry (%) 87 L 03/13/19 03:51 Constitutional: Yes: Calm Eyes: Yes: Conjunctiva Clear HENT: Yes: Atraumatic Neck: Yes: Supple Cardiovascular: Yes: S1, S2 Respiratory: Yes: CTA Bilaterally Gastrointestinal: Yes: Normal Bowel Sounds, Soft Musculoskeletal: Yes: WNL Edema: No Neurological: Yes: Oriented Psychiatric: Yes: Oriented Labs: CBC, BMP 03/13/19 07:25 03/13/19 07:25 Problem List - Problems (1) Abdominal pain Code(s): R10.9 - UNSPECIFIED ABDOMINAL PAIN Qualifiers: Abdominal location: upper abdomen, unspecified Qualified Code(s): R10.10 - Upper abdominal pain, unspecified (2) Vomiting Code(s): R11.10 - VOMITING, UNSPECIFIED Qualifiers: Vomiting type: unspecified Vomiting Intractability: non-intractable Nausea presence: with nausea Qualified Code(s): R11.2 - Nausea with vomiting, unspecified Assessment/Plan Current Medications Generic Name Dose Route Start Last Admin Trade Name Freq PRN Reason Stop Dose Admin Heparin Sodium (Porcine) 5,000 unit 03/12/19 22:00 03/15/19 09:05 Heparin - SQ Not Given BID NATHALY Amino Acids 1,000 mls @ 84 mls/hr 03/14/19 19:30 03/15/19 08:21 Clinimix - IV 84 mls/hr Q12H NATHALY Administration Morphine Sulfate 2 mg 03/12/19 20:50 03/14/19 19:56 Morphine Sulfate IVPUSH 2 mg Q4H PRN Administration PAIN LEVEL 4 - 6 Ondansetron HCl 4 mg 03/12/19 20:50 03/15/19 16:08 Zofran Injection IVPB 4 mg Q4H PRN Administration NAUSEA AND/OR VOMITING Pantoprazole Sodium 40 mg 03/12/19 21:00 03/15/19 09:02 Protonix Iv IVPUSH 40 mg DAILY NATHALY Administration Impression 1. dehydration 2. hyponatremia 3. hyperkalemia 4. esophageal cancer 5. malnutrition 6. transaminitis Plan - start clinimix - repeat labs in am - potassium and sodium improved - possible transfer to tertiary care center - oncology follow up - nutrition eval
[2019-03-15] MEDS: MORPHINE SULFATE 2 MG/ML VIAL IVPUSH PRN (20:14)
[2019-03-16] MEDS: MORPHINE SULFATE 2 MG/ML VIAL IVPUSH PRN ×5 (00:27→19:56)
[2019-03-16] MEDS: ONDANSETRON 4 MG/2 ML VIAL IVPB PRN ×5 (00:27→19:59)
[2019-03-16 08:36] LABS: BASO % 0.4 % (0-2.0); EOS % 0.8 % (0-4.5); HEMATOCRIT 42.1 % (35.4-49); HEMOGLOBIN 14.2 GM/dL (11.7-16.9); LYMPH % 5.2 % (8-40); MCH 30.7 pg (25.7-33.7); MCHC 33.8 g/dl (32.0-35.9); MEAN CELL VOLUME 90.8 fl (80-96); MEAN PLT VOLUME 9.5 fl (7.5-11.1); NEUT % 85.6 % (42.8-82.8); PLATELET COUNT 216 K/MM3 (134-434); RBC 4.64 M/mm3 (4.00-5.60); RDW 13.3 % (11.9-15.9); WHITE BLOOD COUNT 7.5 K/mm3 (4.0-10.0)
[2019-03-16] MEDS: AMINO ACIDS 4.25%/D5W 1,000 ML IV SCH ×2 (08:42→14:21)
[2019-03-16 09:12] LABS: ALBUMIN 2.5 g/dl (3.4-5.0); BILIRUBIN,TOTAL 2.5 mg/dL (0.2-1); BLOOD UREA NITROGEN 23.1 mg/dL (7-18); CALCIUM 8.1 mg/dL (8.5-10.1); CREATININE 1.2 mg/dL (0.55-1.3); POTASSIUM 4.1 mmol/L (3.5-5.1); TOT PROT 5.8 g/dl (6.4-8.2)
[2019-03-16] MEDS: HEPARIN NA (PORCINE) 5,000 UNITS/ML 1ML VIAL SQ SCH ×2 (09:36→22:35)
[2019-03-16] MEDS: PANTOPRAZOLE SODIUM 40 MG VIAL IVPUSH SCH (09:55)
[2019-03-16] MEDS ORDERED: MIDAZOLAM HCL 2 MG/2 ML SINGLE DOSE VIAL ONE (11:04)
[2019-03-16] MEDS ORDERED: MIDAZOLAM HCL 2 MG/2 ML SINGLE DOSE VIAL IVPUSH ONE (12:30)
--- NOTE | 2019-03-16 14:09 | PN ---
Progress Note (short form) - Note Progress Note: HPI: Pt for liver biopsy today. Pt's to bring radiology scans and pathology reports today. Pathology slides to be sent to Dr. Rodriguez's [facility] offices. Pt reports sleeping slightly more compared to previous day. His nausea has remained, but he has had no emesis today. He is attempting to drink Ensure cut with water to help with his nourishment. Clinimix continues Vital Signs Temperature 98.7 F 03/16/19 09:13 Pulse Rate 103 H 03/16/19 11:45 Respiratory Rate 03/16/19 11:45 Blood Pressure 121/71 03/16/19 11:45 O2 Sat by Pulse Oximetry (%) 94 L 03/16/19 11:45 PE: GEN: NAD, awake, alert, sitting at bedside with and brother HEENT: sclera anicteric MMM no thrush Neck: No JVD Lungs: CTA b/l without wheezes or crackles. No accessory muscle use. 2LNC CARD: RRR, no murmurs appreciated ABD: Soft, nondistended, bandage over biopsy site without any bleeding noted, EXT: 2+ dP pulses, no lower extremity edema, no calf tenderness. CBC, BMP 03/16/19 07:49 03/16/19 07:49 Hepatic Panel Total Bilirubin 2.5 mg/dL (0.2-1) H 03/16/19 07:49 AST 338 U/L (15-37) H 03/16/19 07:49 ALT 174 U/L (13-61) H 03/16/19 07:49 Alkaline Phosphatase 396 U/L (45-117) H 03/16/19 07:49 Albumin 2.5 g/dl (3.4-5.0) L 03/16/19 07:49 Active Medications Heparin Sodium (Porcine) (Heparin -) 5,000 unit SQ BID [facility] Last Admin: 03/16/19 09:36 Dose: Not Given Amino Acids (Clinimix -) 1,000 mls @ 84 mls/hr IV Q12H [facility] Last Admin: 03/16/19 08:42 Dose: Not Given Morphine Sulfate (Morphine Sulfate) 2 mg IVPUSH Q4H PRN PRN Reason: PAIN LEVEL 4 - 6 Last Admin: 03/16/19 08:42 Dose: 2 mg Ondansetron HCl (Zofran Injection) 4 mg IVPB Q4H PRN PRN Reason: NAUSEA AND/OR VOMITING Last Admin: 03/16/19 08:42 Dose: 4 mg Pantoprazole Sodium (Protonix Iv) 40 mg IVPUSH DAILY [facility] Last Admin: 03/16/19 09:55 Dose: 40 mg Assessment/Plan: Suspected Stage IV Esophageal Cancer Liver Mass likely neoplastic disease Transaminitis --Pt to have liver biopsy for confirmation of metastases/staging --Appreciate GI consultation: recommendation of transferring for esophageal stenting by Dr. Alberts at [facility] --In interim can use Clinimix being managed by nephrology: --Recommended to add 20% 250cc lipids, infuvite, & B1 100mg --Pathology slides are in transit to Dr. Rodriguez's [facility] office --Encouraged use of ensure, pediatlyte liquids while patient is having dysphagia to maintain hydration status --Will eventually need chemoport placement for systemic therapy Case to be discussed with Dr. Jennifer Osborn, DO - IM PGY-3
--- NOTE | 2019-03-16 17:09 | PN ---
Progress Note, Physician History of Present Illness: Pt seen and examined at bedside. He is awake and alert. He denies shortness of breath. He had the biopsy today. - Current Medication List Current Medications: Active Medications Heparin Sodium (Porcine) (Heparin -) 5,000 unit SQ BID [facility] Last Admin: 03/16/19 09:36 Dose: Not Given Amino Acids (Clinimix -) 1,000 mls @ 84 mls/hr IV Q12H [facility] Last Admin: 03/16/19 14:21 Dose: 84 mls/hr Morphine Sulfate (Morphine Sulfate) 2 mg IVPUSH Q4H PRN PRN Reason: PAIN LEVEL 4 - 6 Last Admin: 03/16/19 14:20 Dose: 2 mg Ondansetron HCl (Zofran Injection) 4 mg IVPB Q4H PRN PRN Reason: NAUSEA AND/OR VOMITING Last Admin: 03/16/19 14:21 Dose: 4 mg Pantoprazole Sodium (Protonix Iv) 40 mg IVPUSH DAILY [facility] Last Admin: 03/16/19 09:55 Dose: 40 mg - Objective Vital Signs: Vital Signs Temperature 98.3 F 03/16/19 15:29 Pulse Rate 121 H 03/16/19 15:29 Respiratory Rate 20 03/16/19 15:29 Blood Pressure 135/71 03/16/19 15:29 O2 Sat by Pulse Oximetry (%) 94 L 03/16/19 11:45 Constitutional: Yes: Calm Eyes: Yes: Conjunctiva Clear HENT: Yes: Atraumatic Neck: Yes: Supple Cardiovascular: Yes: S1, S2 Respiratory: Yes: CTA Bilaterally Gastrointestinal: Yes: Soft Genitourinary: Yes: WNL Musculoskeletal: Yes: WNL Edema: No Neurological: Yes: Oriented Psychiatric: Yes: Oriented Labs: CBC, BMP 03/16/19 07:49 03/16/19 07:49 INR, PTT INR 1.28 (0.83-1.09) H 03/12/19 13:30 Problem List - Problems (1) Abdominal pain Code(s): R10.9 - UNSPECIFIED ABDOMINAL PAIN Qualifiers: Abdominal location: upper abdomen, unspecified Qualified Code(s): R10.10 - Upper abdominal pain, unspecified (2) Vomiting Code(s): R11.10 - VOMITING, UNSPECIFIED Qualifiers: Vomiting type: unspecified Vomiting Intractability: non-intractable Nausea presence: with nausea Qualified Code(s): R11.2 - Nausea with vomiting, unspecified Assessment/Plan Current Medications Generic Name Dose Route Start Last Admin Trade Name Fremaryan PRN Reason Stop Dose Admin Heparin Sodium (Porcine) 5,000 unit 03/12/19 22:00 03/16/19 09:36 Heparin - SQ Not Given BID NATHALY Amino Acids 1,000 mls @ 84 mls/hr 03/14/19 19:30 03/16/19 14:21 Clinimix - IV 84 mls/hr Q12H NATHALY Administration Morphine Sulfate 2 mg 03/12/19 20:50 03/16/19 14:20 Morphine Sulfate IVPUSH 2 mg Q4H PRN Administration PAIN LEVEL 4 - 6 Ondansetron HCl 4 mg 03/12/19 20:50 03/16/19 14:21 Zofran Injection IVPB 4 mg Q4H PRN Administration NAUSEA AND/OR VOMITING Pantoprazole Sodium 40 mg 03/12/19 21:00 03/16/19 09:55 Protonix Iv IVPUSH 40 mg DAILY NATHALY Administration Impression 1. dehydration 2. hyponatremia 3. hyperkalemia 4. esophageal cancer 5. malnutrition 6. transaminitis Plan - cont clinimix - encourage po intake if possible - monitor lytes - GI follow up - possible transfer to tertiary care center for palliative stent - oncology follow up - nutrition eval - will follow prn
--- NOTE | 2019-03-16 17:45 | PN ---
Progress Note (short form) - Note Progress Note: Patent seen and examined Liver biopsy by I.RNeo performed On clinimix Last Vital Signs Temp Pulse Resp BP Pulse Ox 98.3 F 121 H 20 135/71 94 L 03/16/19 15:29 03/16/19 15:29 03/16/19 15:29 03/16/19 15:29 03/16/19 11:45 Discussion with patient and about general approach to treatment Possibility of stent - Discussed risk of stent migration and asked that they have further discussion with GI Spoke with Dr. Gagan Alberts at [facility]--he is willing to do stent Placement Will discuss double lumen port for TPN and systemic treatment in future. Awaiting slides fro esophageal endoscopy. Miralax for bowels. No BM x days on opiates.
--- NOTE | 2019-03-16 19:20 | PN ---
Progress Note, Physician - Current Medication List Current Medications: Active Medications Diphenhydramine HCl (Benadryl Injection -) 50 mg IVPUSH HS PRN PRN Reason: INSOMNIA Heparin Sodium (Porcine) (Heparin -) 5,000 unit SQ BID [facility] Last Admin: 03/16/19 09:36 Dose: Not Given Amino Acids (Clinimix -) 1,000 mls @ 84 mls/hr IV Q12H [facility] Last Admin: 03/16/19 14:21 Dose: 84 mls/hr Morphine Sulfate (Morphine Sulfate) 2 mg IVPUSH Q4H PRN PRN Reason: PAIN LEVEL 4 - 6 Last Admin: 03/16/19 14:20 Dose: 2 mg Ondansetron HCl (Zofran Injection) 4 mg IVPB Q4H PRN PRN Reason: NAUSEA AND/OR VOMITING Last Admin: 03/16/19 14:21 Dose: 4 mg Pantoprazole Sodium (Protonix Iv) 40 mg IVPUSH DAILY [facility] Last Admin: 03/16/19 09:55 Dose: 40 mg Polyethylene Glycol (Miralax (For Daily Use) -) 17 gm PO DAILY [facility] - Objective Vital Signs: Vital Signs Temperature 98.3 F 03/16/19 15:29 Pulse Rate 121 H 03/16/19 15:29 Respiratory Rate 20 03/16/19 15:29 Blood Pressure 135/71 03/16/19 15:29 O2 Sat by Pulse Oximetry (%) 94 L 03/16/19 11:45 Constitutional: Yes: No Distress HENT: Yes: Atraumatic Neck: Yes: Supple Cardiovascular: Yes: Regular Rate and Rhythm Respiratory: Yes: CTA Bilaterally Extremities: Yes: WNL Edema: No Neurological: Yes: Alert, Oriented Labs: CBC, BMP 03/16/19 07:49 03/16/19 07:49 INR, PTT INR 1.28 (0.83-1.09) H 03/12/19 13:30 Problem List - Problems (1) Abdominal pain Assessment/Plan: resolved Code(s): R10.9 - UNSPECIFIED ABDOMINAL PAIN Qualifiers: Abdominal location: upper abdomen, unspecified Qualified Code(s): R10.10 - Upper abdominal pain, unspecified (2) Transaminitis Assessment/Plan: follow up labs improving Code(s): R74.0 - NONSPEC ELEV OF LEVELS OF TRANSAMNS & LACTIC ACID DEHYDRGNSE (3) Vomiting Assessment/Plan: on clear liquid Code(s): R11.10 - VOMITING, UNSPECIFIED Qualifiers: Vomiting type: unspecified Vomiting Intractability: non-intractable Nausea presence: with nausea Qualified Code(s): R11.2 - Nausea with vomiting, unspecified (4) Esophageal cancer Assessment/Plan: pending reports d/w dr galvez clear liquid diet Code(s): C15.9 - MALIGNANT NEOPLASM OF ESOPHAGUS, UNSPECIFIED
[2019-03-16] MEDS: POLYETHYLENE GLYCOL 3350 119 GM BTL PO SCH (19:55)
--- NOTE | 2019-03-16 21:53 | PN ---
Progress Note (short form) - Note Progress Note: Radiation Oncology Pt seen/evaluated, chart/films reviewed, dictated consult to follow. 53 yo recently diagnosed with distal esophageal cancer upon presenting with dysphagia for solids, wt loss, vomiting and dehydration. Reports RUQ pain. Tolerating liquids and jello. CT suspicious for multiple liver mets s/p liver bx today. Outside EGD reports and slides to be reviewed. Impression is likely metastatic esophageal malignancy. Will need systemic therapy. Reviewed with pt and role of RT for palliation of bleeding, pain, obstruction. Stent being considered to enhance oral nutrition. If not feasible, consider PEG. Follow up pathology.
[2019-03-17] MEDS: MORPHINE SULFATE 2 MG/ML VIAL IVPUSH PRN ×5 (01:06→23:19)
[2019-03-17] MEDS: AMINO ACIDS 4.25%/D5W 1,000 ML IV SCH ×2 (05:56→17:36)
[2019-03-17] MEDS: ONDANSETRON 4 MG/2 ML VIAL IVPB PRN ×4 (05:56→23:19)
[2019-03-17] MEDS: HEPARIN NA (PORCINE) 5,000 UNITS/ML 1ML VIAL SQ SCH ×2 (09:48→21:08)
[2019-03-17] MEDS: PANTOPRAZOLE SODIUM 40 MG VIAL IVPUSH SCH (09:48)
[2019-03-17] MEDS: POLYETHYLENE GLYCOL 3350 119 GM BTL PO SCH (09:49)
[2019-03-17] MEDS ORDERED: FENTANYL PATCH WASTE MC PRN (11:51)
[2019-03-17] MEDS ORDERED: fentaNYL 12mcg/hr PATCH.TD72 TD SCH (12:00)
--- NOTE | 2019-03-17 12:53 | PN ---
Progress Note, Physician - Current Medication List Current Medications: Active Medications Diphenhydramine HCl (Benadryl Injection -) 50 mg IVPUSH HS PRN PRN Reason: INSOMNIA Fentanyl (Duragesic 12mcg Patch -) 1 patch TD Q72H [facility] Stop: 03/24/19 11:51 Heparin Sodium (Porcine) (Heparin -) 5,000 unit SQ BID [facility] Last Admin: 03/17/19 09:48 Dose: 5,000 unit Amino Acids (Clinimix -) 1,000 mls @ 84 mls/hr IV Q12H [facility] Last Admin: 03/17/19 05:56 Dose: 84 mls/hr Miscellaneous (Duragesic Patch Waste) 1 each MC PRN PRN PRN Reason: PAIN Morphine Sulfate (Morphine Sulfate) 2 mg IVPUSH Q3H PRN PRN Reason: PAIN LEVEL 4 - 6 Ondansetron HCl (Zofran Injection) 4 mg IVPB Q4H PRN PRN Reason: NAUSEA AND/OR VOMITING Last Admin: 03/17/19 09:49 Dose: 4 mg Pantoprazole Sodium (Protonix Iv) 40 mg IVPUSH DAILY [facility] Last Admin: 03/17/19 09:48 Dose: 40 mg Polyethylene Glycol (Miralax (For Daily Use) -) 17 gm PO DAILY [facility] Last Admin: 03/17/19 09:49 Dose: 17 grams - Objective Vital Signs: Vital Signs Temperature 98.5 F 03/17/19 10:00 Pulse Rate 109 H 03/17/19 10:00 Respiratory Rate 03/17/19 10:00 Blood Pressure 115/70 03/17/19 10:00 O2 Sat by Pulse Oximetry (%) 94 L 03/16/19 11:45 Constitutional: Yes: No Distress HENT: Yes: Atraumatic Neck: Yes: Supple Cardiovascular: Yes: Regular Rate and Rhythm Respiratory: Yes: CTA Bilaterally Gastrointestinal: Yes: Normal Bowel Sounds Extremities: Yes: WNL Neurological: Yes: Alert, Oriented Labs: CBC, BMP 03/16/19 07:49 03/16/19 07:49 INR, PTT INR 1.28 (0.83-1.09) H 03/12/19 13:30 Problem List - Problems (1) Abdominal pain Assessment/Plan: resolved Code(s): R10.9 - UNSPECIFIED ABDOMINAL PAIN Qualifiers: Abdominal location: upper abdomen, unspecified Qualified Code(s): R10.10 - Upper abdominal pain, unspecified (2) Transaminitis Code(s): R74.0 - NONSPEC ELEV OF LEVELS OF TRANSAMNS & LACTIC ACID DEHYDRGNSE (3) Vomiting Code(s): R11.10 - VOMITING, UNSPECIFIED Qualifiers: Vomiting type: unspecified Vomiting Intractability: non-intractable Nausea presence: with nausea Qualified Code(s): R11.2 - Nausea with vomiting, unspecified (4) Esophageal cancer Assessment/Plan: pending reports d/w dr galvez clear liquid diet Code(s): C15.9 - MALIGNANT NEOPLASM OF ESOPHAGUS, UNSPECIFIED
--- NOTE | 2019-03-17 14:14 | PN ---
Progress Note (short form) - Note Progress Note: Did not received EGD/Pathology report via fax despite patient signing release of medical information and having it faxed to his primary rental car porter's office yesterday. Awaiting further information to be obtained from rental car porter's office Awaiting path from liver biopsy Reasonable option would be Stent placement for relief of obstructive symptoms. This would not preclude RT or further treatment. Would need transfer to [facility] for stent placement. Family aware as is patient.
--- NOTE | 2019-03-17 16:33 | CONS ---
DATE OF CONSULTATION: 03/16/2019 REFERRING PHYSICIAN: Chuckie Rodriguez MD REASON FOR CONSULTATION: Esophageal cancer. HISTORY OF PRESENT ILLNESS: Patient is a 53-year-old gentleman who was recently diagnosed with a distal esophageal cancer, upon presentation of dysphagia with followed vomiting, dehydration, and weight loss. He had a biopsy and EGD by his local pumper gager a few weeks ago. He is admitted for progressive symptoms and inability to keep his food down. He has right upper quadrant pain and only tolerates liquids and Jell-O. CT scan of the abdomen and pelvis at [facility] demonstrates multiple hepatic lesions consistent with metastatic disease as well as several enlarged vijay hepatis and retroperitoneal lymph nodes. He underwent CT-guided liver biopsy today. Pathology is pending. We are asked to render an opinion. PAST MEDICAL HISTORY: As noted above. PAST SURGICAL HISTORY: As noted above. ALLERGIES: No known drug allergies. CURRENT MEDICATIONS: Duragesic, Zofran p.r.n., heparin subcutaneous, MiraLAX, Benadryl p.r.n., Protonix. FAMILY HISTORY: Denies. SOCIAL HISTORY: He is . He had worked at "[email or web address] He smoked a pack a day until 2011. He consumes 5-6 beers each week. REVIEW OF SYSTEMS: Mild headache, occasional lightheadedness, nausea, vomiting, weight loss, anorexia, and dysphagia. He notes constant right upper quadrant pain. PHYSICAL EXAMINATION: General: Well-appearing male appearing his age, in no acute distress. His is at the bedside. Vital Signs: Temperature 98.3, BP 135/71, pulse 121, respiratory rate 20. HEENT: Normocephalic, atraumatic. Moist mucous membranes. Anicteric sclerae. Oral cavity clear without mucositis or lesions. Neck: No adenopathy. Chest: Clear. Cardiovascular: Regular. Abdomen: Mild right upper quadrant tenderness on deep palpation. No intraabdominal mass or distention. Extremities: No peripheral edema. Musculoskeletal: No spine or CVA tenderness. Neurologic: Grossly nonfocal. LABORATORY DATA: WBC 7.5, hemoglobin 14.2, platelet count 216,000. Electrolytes within normal limits. BUN 23.1, creatinine 1.2. Abnormal liver function. AST 338, ALT 174, alkaline phosphatase 396, total bilirubin 2.5, total protein 5.8, albumin 2.5, calcium 8.1. CEA 19.1. RADIOLOGIC DATA: CT abdomen and pelvis: See HPI. PATHOLOGIC DATA: Esophageal biopsy and liver biopsy results/reports awaited. IMPRESSIONS: A 53-year-old gentleman with likely metastatic esophageal malignancy involving the liver and retroperitoneal lymph nodes. His informs me that they have requested the EGD and biopsy reports as well as the slides to be sent to [facility] for review. The liver biopsy results are pending. We discussed the need for systemic therapy as the mainstay of treatment. We reviewed the role of radiation therapy for palliation of bleeding, pain, and obstruction. For distal esophageal obstruction, a stent placement is considered to enhance oral nutrition. If this is not feasible, a PEG will need to be considered. We will follow up the pathology and further management recommendations will follow. Thank you for the courtesy of this consultation. CESAR YU M.D. [id number] MTDD
--- NOTE | 2019-03-17 20:40 | PN ---
Progress Note (short form) - Note Progress Note: Patient seen in follow up. No new complaints. No significant events overnight. Reports that PRN IV morphine last about 2-3 hours before pain returns Inpatient Meds reviewed. Current Medications Diphenhydramine HCl (Benadryl Injection -) 50 mg IVPUSH HS PRN PRN Reason: INSOMNIA Fentanyl (Duragesic 12mcg Patch -) 1 patch TD Q72H [facility] Stop: 03/24/19 11:51 Last Admin: 03/17/19 13:34 Dose: 1 patch Heparin Sodium (Porcine) (Heparin -) 5,000 unit SQ BID [facility] Last Admin: 03/17/19 09:48 Dose: 5,000 unit Amino Acids (Clinimix -) 1,000 mls @ 84 mls/hr IV Q12H [facility] Last Admin: 03/17/19 17:36 Dose: 84 mls/hr Miscellaneous (Duragesic Patch Waste) 1 each MC PRN PRN PRN Reason: PAIN Morphine Sulfate (Morphine Sulfate) 2 mg IVPUSH Q3H PRN PRN Reason: PAIN LEVEL 4 - 6 Last Admin: 03/17/19 14:34 Dose: 2 mg Ondansetron HCl (Zofran Injection) 4 mg IVPB Q4H PRN PRN Reason: NAUSEA AND/OR VOMITING Last Admin: 03/17/19 14:35 Dose: 4 mg Pantoprazole Sodium (Protonix Iv) 40 mg IVPUSH DAILY [facility] Last Admin: 03/17/19 09:48 Dose: 40 mg Polyethylene Glycol (Miralax (For Daily Use) -) 17 gm PO DAILY [facility] Last Admin: 03/17/19 09:49 Dose: 17 grams On Examination: Last Vital Signs Temp Pulse Resp BP Pulse Ox 99.4 F 107 H 20 123/67 94 L 03/17/19 19:56 03/17/19 19:56 03/17/19 16:44 03/17/19 19:56 03/16/19 11:45 General: In no acute distress,sitting up in bed Extremities: No pallor or icterus. No pedal edema. No palpable lymphadenopathy. CVS: S1, S2, regular, no gallop or murmur. Chest: good air entry bilaterally, clear Abdomen: Non-distended, non-tender, no palpable organomegaly. Neuro: Alert, oriented, non-focal. Labs: CBC, BMP 03/16/19 07:49 03/16/19 07:49 Assessment. Newly diagnosed metastatic esophageal carcinoma, with severe dysphagia. Awaiting esophageal stent. In interim IV nutrition, fluids as tolerated. Pain control not adequate, with frequent breakthrough pain, and PRN regimen not lasting duration of PRN frequency. Will start long acting opioid (Fentanyl TD 12.5) and decrease morphine IV PRN frequency to Q3. Attention to appropriate bowel regimen while on opioids
[2019-03-18] MEDS: MORPHINE SULFATE 2 MG/ML VIAL IVPUSH PRN ×4 (02:25→15:52)
[2019-03-18] MEDS: ONDANSETRON 4 MG/2 ML VIAL IVPB PRN ×3 (02:25→15:48)
[2019-03-18] MEDS: AMINO ACIDS 4.25%/D5W 1,000 ML IV SCH (05:46)
[2019-03-18 09:05] LABS: BLOOD UREA NITROGEN 34.7 mg/dL (7-18); CALCIUM 8.1 mg/dL (8.5-10.1); CREATININE 1.1 mg/dL (0.55-1.3); MAGNESIUM 2.4 mg/dL (1.8-2.4); POTASSIUM 4.1 mmol/L (3.5-5.1)
--- NOTE | 2019-03-18 09:07 | PN ---
Progress Note (short form) - Note Progress Note: Continued difficulty with swallowing Apparently the fax machine on this floor has not been working for a week or more , likely why EGD/Pathology report was not received Spoke with Mr. Wagoner. Will be arranging transfer to [facility] for evaluation of esophageal stent placement Awaiting liver biopsy results and records from primary dater assembler. Systemic therapy can then be addressed.
[2019-03-18] MEDS: PANTOPRAZOLE SODIUM 40 MG VIAL IVPUSH SCH (09:12)
[2019-03-18] MEDS: HEPARIN NA (PORCINE) 5,000 UNITS/ML 1ML VIAL SQ SCH (09:53)
[2019-03-18] MEDS: POLYETHYLENE GLYCOL 3350 119 GM BTL PO SCH (11:39)
--- NOTE | 2019-03-18 16:18 | DS ---
Physical Examination Vital Signs: Vital Signs Temperature 98.4 F 03/18/19 10:00 Pulse Rate 87 03/18/19 10:00 Respiratory Rate 20 03/18/19 10:00 Blood Pressure 132/70 03/18/19 10:00 O2 Sat by Pulse Oximetry (%) 94 L 03/16/19 11:45 Constitutional: Yes: No Distress HENT: Yes: Atraumatic Neck: Yes: Supple Cardiovascular: Yes: Regular Rate and Rhythm Respiratory: Yes: CTA Bilaterally Gastrointestinal: Yes: Normal Bowel Sounds Extremities: Yes: WNL Edema: No Neurological: Yes: Alert, Oriented Labs: CBC, BMP 03/16/19 07:49 03/18/19 07:57 Discharge Summary Problems reviewed: Yes Reason For Visit: ELEVATED TRANSAMINASE MEASUREMENTS,LIVER MASS, Current Active Problems Abdominal pain (Acute) Elevated LFTs (Acute) Esophageal cancer (Acute) Transaminitis (Acute) Vomiting (Acute) Condition: Stable - Instructions - Home Medications Comprehensive Discharge Medication List: Ambulatory Orders Fentanyl Patch Waste [Duragesic Patch Waste] 1 each MC PRN PRN each 03/18/19 Heparin - 5,000 unit SQ BID vial 03/18/19 Pantoprazole Sodium [Protonix IV] 40 mg IVPUSH DAILY vial 03/18/19 Polyethylene Glycol 3350 [Miralax 119 gm Btl -] 17 gm PO DAILY bottle 03/18/[address] [facility] for further care papers filled out
[2019-03-18 16:19] VITALS: BP 126/78; PULSE 102; TEMP 98.8
--- NOTE | 2019-03-18 16:25 | PN ---
Progress Note (short form) - Note Progress Note: Patient seen in follow up. No new complaints. No significant events overnight. Doing better with fentanyl patch. Inpatient Meds reviewed. Current Medications Diphenhydramine HCl (Benadryl Injection -) 50 mg IVPUSH HS PRN PRN Reason: INSOMNIA Fentanyl (Duragesic 12mcg Patch -) 1 patch TD Q72H [facility] Stop: 03/24/19 11:51 Last Admin: 03/17/19 13:34 Dose: 1 patch Heparin Sodium (Porcine) (Heparin -) 5,000 unit SQ BID [facility] Last Admin: 03/18/19 09:53 Dose: 5,000 unit Amino Acids (Clinimix -) 1,000 mls @ 84 mls/hr IV Q12H [facility] Last Admin: 03/18/19 05:46 Dose: 84 mls/hr Sodium Chloride (Normal Saline -) 1,000 mls @ 50 mls/hr IV ASDIR [facility] Stop: 03/19/19 16:22 Miscellaneous (Duragesic Patch Waste) 1 each MC PRN PRN PRN Reason: PAIN Morphine Sulfate (Morphine Sulfate) 2 mg IVPUSH Q3H PRN PRN Reason: PAIN LEVEL 4 - 6 Last Admin: 03/18/19 15:52 Dose: 2 mg Ondansetron HCl (Zofran Injection) 4 mg IVPB Q4H PRN PRN Reason: NAUSEA AND/OR VOMITING Last Admin: 03/18/19 15:48 Dose: 4 mg Pantoprazole Sodium (Protonix Iv) 40 mg IVPUSH DAILY [facility] Last Admin: 03/18/19 09:12 Dose: 40 mg Polyethylene Glycol (Miralax (For Daily Use) -) 17 gm PO DAILY [facility] Last Admin: 03/18/19 11:39 Dose: 17 grams On Examination: Last Vital Signs Temp Pulse Resp BP Pulse Ox 98.8 F 102 H 22 H 126/78 94 L 03/18/19 16:14 03/18/19 16:14 03/18/19 16:14 03/18/19 16:14 03/16/19 11:45 General: In no acute distress,sitting up in bed Extremities: No pallor or icterus. No pedal edema. No palpable lymphadenopathy. CVS: S1, S2, regular, no gallop or murmur. Chest: good air entry bilaterally, clear Abdomen: Non-distended, non-tender, no palpable organomegaly. Neuro: Alert, oriented, non-focal. Labs: CBC, BMP 03/16/19 07:49 03/18/19 07:57 Assessment. Newly diagnosed metastatic esophageal carcinoma, with severe dysphagia. Awaiting esophageal stent. Will be transferred to [facility] tomorrow. In interim IV nutrition, fluids as tolerated. Pain control now adequate, on long acting opioid (Fentanyl TD 12.5) and PRN morphine IV Q3h. Concerned that not meeting fluid requirements - will add IV fluid infusion. Attention to appropriate bowel regimen while on opioids
[2019-03-18] MEDS ORDERED: SODIUM CHLORIDE 1,000 ML IV SCH (16:30)
--- NOTE | 2019-03-21 16:26 | PATH ---
Surgical Pathology Report Patient Name: ROCCO LAMA [facility]. Rec. #: [id number] /Age/Gender: 1965 (Age: 53) / M Account: [id number] Location: [address] [place] [address] Taken: 03/16/2019 Received: 03/16/2019 Reported: 03/21/2019 Physicians: Bert Elmore M.D. Karl Hanna M.D. Chuckie Rodriguez M.D. Specimen(s) Received LIVER BIOPSY Clinical History 53-year-old male with esophageal cancer and infiltrative liver neoplasm. Patient had exposure to ground zero in [facility]. Final Diagnosis LIVER TISSUE BIOPSY: POORLY DIFFERENTIATED ADENOCARCINOMA. SEE COMMENT. Comment: Clusters of tumor cells with marked nuclear pleomorphism, prominent nucleoli and occasional glandular formation. Immunohistochemical stained slides demonstrate tumor cells to be positive for CK7, CK20, CDX-2, and SATB2 (weak, focal), while negative for P40, HepPar1, Glypican-3, Synaptophysin, Chromogranin A, TTF-1, Bisi-3, and Thrombomodulin. If patient had history of esophageal adenocarcinoma, this immunophenotype is compatible with esophageal primary. The differential diagnoses include upper GI and pancreatobiliary tract. Suggest clinical correlation. Immunohistochemistry stains CDX-2, P40, HepPar1, Glypican-3, Bisi-3, Thrombomodulin and SATB2 performed at [place], [place] ([id number]) interpreted at [facility]. Immunohistochemistry stains AE1/AE3, CK7, CK20, Synaptophysin, Chromogranin A and TTF-1performed and interpreted at [facility]. Positive and negative controls (internal if applicable) show appropriate results. Intradepartmental case reviewed with concordance on diagnosis. This case was discussed with Dr. Rodriguez on March 21, 2019. [facility] Assay analysis result is pending. Electronically Signed Jeimy Gonzalez M.D. Addendum Reported: 04/10/2019 Addendum Diagnosis [facility] testing performed and interpreted at [place], [place]([id number]) shows the following: Comment: Testing not performed/failed. Original report faxed to Dr. Rodriguez and Dr. Lopez. See [facility] report for additional details. Jeimy Gonzalez M.D. Gross Description Received in formalin labeled "liver tissue," are 3 murillo, cylindrical portion of soft tissue ranging from 1.3-1.5 cm in length and averaging 0.1 cm in diameter. The specimens are submitted in toto in one cassette. 03/16/2019 saudi03/16/2019
== END 2019-03-18 17:12 | disposition short-term general hospital (02) | DRG 375 ==
LOC: JER 10:58 → JERBED 20:22 → J6S 03-13 03:50
PROVIDERS: ADMIT Internal Medicine; ATTEND Internal Medicine
PROC: 0FB03ZX Excision of Liver, Percutaneous Approach, Diagnostic (ICD-10-PCS; principal; 2019-03-16)
DX: C15.9 Malignant neoplasm of esophagus, unspecified (principal); C78.7 Secondary malignant neoplasm of liver and intrahepatic bile duct; E87.1 Hypo-osmolality and hyponatremia; E46 Unspecified protein-calorie malnutrition; R10.11 Right upper quadrant pain; R11.2 Nausea with vomiting, unspecified; R13.10 Dysphagia, unspecified; E86.0 Dehydration; E87.5 Hyperkalemia; Z68.32 Body mass index [BMI] 32.0-32.9, adult; R74.0 Nonspecific elevation of levels of transaminase and lactic acid dehydrogenase [LDH]
CPT/HCPCS: 36415; 74177-TC; 76705-TC; 76942-TC; 80048; 80053; 81003; 82378; 82550; 82553; 83690; 83735; 84100; 84484; 85025; 85610; 85730; 87899; 88305-TC; 88341-TC; 93005; 93010; 99284-25; J1644; J7030; Q9967